=== PATIENT | male | born 1960 | race Two or more races ===

== ENCOUNTER 2018-06-27 12:10 | Emergency (ER) | payer MEDICAID ==
[~2018-06-27] VITALS: Ht 182.9 cm; Wt 63.5 kg
[2018-06-27 12:15] VITALS: BP 166/93
== END 2018-06-27 13:25 | disposition home or self-care (01) ==
LOC: ER 12:10
DX: F11.10 Opioid abuse, uncomplicated (principal); F17.210 Nicotine dependence, cigarettes, uncomplicated